=== PATIENT | female | born 1975 | race American Indian/Alaskan Native ===

== ENCOUNTER → 2017-08-07 | Emergency (ER) | payer OTHER ==
[~2017-08-07] VITALS: Ht 170.2 cm; Wt 81.7 kg
[~2017-08-07] MED LIST: ACEROLA C500 MG PO; ACETAMINOPHEN325 M1 PO; ALLEGRA ALLERG180 MG PO; BENADRYL ALLERG25 MG PO; BENADRYL25 MG PO; FERRO-TIME325 MG; FOLIC ACID0.4 MG PO; HYDROXYCHLOROQ200 MG PO; IBUPROFEN600 MG PO; IBUPROFEN800 MG PO; MELOXICAM15 MG PO; PERMETHRIN60 GM TOP; PREDNISONE20 MG PO; PREDNISONE5 GM MISC; PREDNISONE5 MG PO; TREXALL5 MG PO
== END | disposition home or self-care (01) ==
LOC: ED 20:59
DX: M06.9 Rheumatoid arthritis, unspecified (principal); Z76.0 Encounter for issue of repeat prescription; F17.200 Nicotine dependence, unspecified, uncomplicated; Z79.899 Other long term (current) drug therapy
CPT/HCPCS: 99282; J7512

== ENCOUNTER 2020-08-30 13:30 | Emergency (ER) | payer OTHER ==
[~2020-08-30] VITALS: Ht 170.2 cm; Wt 74.8 kg
[2020-08-30] MEDS ORDERED: SULFASALAZINE500 MG PO (13:53)
[2020-08-30] MEDS ORDERED: HUMIRA20 MG/0.2 (13:54)
[2020-08-30] MEDS ORDERED: IRON325 M1 PO (13:54)
[2020-08-30] MEDS ORDERED: PREDNISONE20 MG PO (14:11)
== END 2020-08-30 14:23 | disposition home or self-care (01) ==
LOC: ED 13:30
DX: U07.1 COVID-19 (principal); L25.9 Unspecified contact dermatitis, unspecified cause; F17.200 Nicotine dependence, unspecified, uncomplicated; Z79.899 Other long term (current) drug therapy; Z79.52 Long term (current) use of systemic steroids
CPT/HCPCS: 99283; C9803; U0003

== ENCOUNTER 2021-06-14 05:21 | Emergency (ER) | payer OTHER ==
[~2021-06-14] VITALS: Ht 170.2 cm; Wt 74.8 kg
[~2021-06-14 05:21] MED LIST changes: +HUMIRA20 MG/0.2; +IRON325 M1 PO; +SULFASALAZINE500 MG PO
--- OUTSIDE RECORDS SUMMARY | 2021-06-14 05:28 | XMS ---
PreManage Notification: JANNET HARRIS Security [employer]yl[employer] Events No recent Security Events currently on file CRITERIA MET - [facility] - 2 Visits in 30 Days CARE PROVIDERS There are no care providers on record at this time. Xavier has no Care Guidelines for this patient. Sophia VISIT COUNT (12 MO.) 3 [facility] [place] TOTAL 3 NOTE: Visits indicate total known visits. ED/C VISIT TRACKING (12 MO.) [facility] COMPLAINT: - VAGINAL DISCHARGE 06/11/2021 14:33 [facility] [place] TYPE: Emergency COMPLAINT: - HEAD PAIN 08/30/2020 13:30 [facility] [place] TYPE: Emergency COMPLAINT: - ITCHY SKIN DIAGNOSES: - Unspecified contact dermatitis, unspecified cause - Nicotine dependence, unspecified, uncomplicated - correction (current) use of systemic steroids - Rash and other nonspecific skin eruption - Other intermodal truck driver (current) drug therapy - COVID-19 INPATIENT VISIT TRACKING (12 MO.) No inpatient visits to display in this time frame [email or web address]
== END 2021-06-14 05:51 | disposition home or self-care (01) ==
LOC: ED 05:21
DX: F40.8 Other phobic anxiety disorders (principal); M06.9 Rheumatoid arthritis, unspecified; F17.200 Nicotine dependence, unspecified, uncomplicated; Z79.52 Long term (current) use of systemic steroids; Z79.899 Other long term (current) drug therapy
CPT/HCPCS: 99282

== ENCOUNTER 2021-10-31 10:04 | Emergency (ER) | payer OTHER ==
[~2021-10-31] VITALS: Ht 170.2 cm; Wt 67.4 kg
[2021-10-31] MEDS ORDERED: DOXYCYCLINE HY100 MG PO (11:01)
== END 2021-10-31 11:17 | disposition home or self-care (01) ==
LOC: ED 10:04
DX: L30.9 Dermatitis, unspecified (principal)
CPT/HCPCS: 99282